=== PATIENT | female | born 2000 | race Caucasian/White ===

== ENCOUNTER 2018-02-24 14:01 | Emergency (ER) | payer OTHER ==
[~2018-02-24] VITALS: Ht 160 cm; Wt 57.0 kg
[2018-02-24 14:18] VITALS: BP 128/83
[2018-02-24] MEDS ORDERED: ACETAMINOPHEN 325MG TABLET PO ONE (14:30)
== END 2018-02-24 16:40 | disposition home or self-care (01) ==
LOC: ER 14:37
DX: S00.03XA Contusion of scalp, initial encounter (principal); W18.09XA Striking against other object with subsequent fall, initial encounter; Y93.9 Activity, unspecified; Y92.9 Unspecified place or not applicable
CPT/HCPCS: 99282

== ENCOUNTER 2018-07-23 21:39 | Emergency (ER) | payer OTHER ==
[~2018-07-23] VITALS: Ht 157.5 cm; Wt 59.0 kg
[2018-07-24 03:29] VITALS: BP 119/68
== END 2018-07-24 03:41 | disposition home or self-care (01) ==
LOC: ER 22:34
DX: R07.89 Other chest pain (principal)
CPT/HCPCS: 71045; 81025; 93005; 99284

== ENCOUNTER 2023-02-18 07:14 | Observation (INO) | payer MEDICAID ==
[~2023-02-18] VITALS: Ht 157.5 cm; Wt 80.7 kg
[2023-02-18] MEDS ORDERED: PREN-176 PO (21:19)
== END 2023-02-18 10:30 | disposition home or self-care (01) ==
LOC: 8 EST LDRP 07:14
PROVIDERS: ADMIT Obstetrics & Gynecology; ATTEND Obstetrics & Gynecology
DX: O62.9 Abnormality of forces of labor, unspecified (principal); O26.853 Spotting complicating pregnancy, third trimester; Z3A.39 39 weeks gestation of pregnancy
CPT/HCPCS: 59025; 76805; 99281; G0378

== ENCOUNTER 2023-02-18 20:42 | Inpatient (IN) | payer MEDICAID ==
[~2023-02-18] VITALS: Ht 157.5 cm; Wt 80.7 kg
[2023-02-18] MEDS ORDERED: PREN-176 PO (21:19)
[2023-02-18] MEDS ORDERED: METHYLERGONOVINE MALEATE 0.2 MG/ML IM PRN (22:00)
[2023-02-18] MEDS ORDERED: NALOXONE HCL 0.4 MG/ML 1ML VIAL IM PRN (22:00)
[2023-02-18] MEDS ORDERED: BUTORPHANOL TARTRATE 2 MG/ML VIAL IV PRN (22:00)
[2023-02-18] MEDS ORDERED: OXYTOCIN 30 UNITS/500ML NS PMX 500 ML IV SCH (22:00)
[2023-02-18] MEDS ORDERED: LIDOCAINE HCL 1% 20ML VIAL (Pyxis) INJ INFIL SCH (22:00)
[2023-02-18 22:20] LABS: BASOPHILS % 0.2 % (0.0-2.0); EOSINOPHILS % 0.1 % (0.0-5.0); HEMATOCRIT. 37.8 % (36.0-48.0); MEAN CORPUSCULAR HEMOGLOBIN 31.6 pg (28.0-32.0); MEAN CORPUSCULAR VOLUME 92.1 fL (81.0-99.0); MEAN PLATELET VOLUME 8.1 fl (7.4-10.4); NEUTROPHILS % 72.7 % (40.0-76.0); PLATELET 260 x1000/uL (130-400); RED CELL DISTRIBUTION WIDTH 14.1 % (11.6-14.6)
[2023-02-18] MEDS: LACTATED RINGERS 1,000 ML IV SCH ×2 (22:28→22:54)
[2023-02-18 22:30] LABS: INR 0.9; PARTIAL THROMBOPLASTIN TIME 25.7 sec (23.4-31.0); PROTHROMBIN TIME 9.3 sec (9.6-11.0)
[2023-02-18] MEDS ORDERED: PENICILLIN G POTASSIUM 5 MMU in DEXT 5% WATER 100 ML IV SCH (22:30)
[2023-02-18 22:33] LABS: CLARITY URINE TURBID (CLEAR); COLOR URINE YELLOW (YELLOW); KETONES URINE NEGATIVE (NEGATIVE); LEUKOCYTE ESTERASE URINE 2+ (NEGATIVE); NITRITE URINE NEGATIVE (NEGATIVE); OCCULT BLOOD URINE 3+ (NEGATIVE); PH URINE 7.5 (4.5-8.0); PROTEIN URINE NEGATIVE (NEGATIVE); SPECIFIC GRAVITY URINE 1.016 (1.005-1.030)
[2023-02-18 22:44] LABS: *AMPHETAMINES SCREEN URINE NEGATIVE (NEGATIVE); *BARBITURATES SCREEN URINE NEGATIVE (NEGATIVE); *BENZODIAZEPINES SCREEN URINE NEGATIVE (NEGATIVE); *COCAINE SCREEN URINE NEGATIVE (NEGATIVE); CANNABINOID URINE SCREEN NEGATIVE (NEGATIVE); METHADONE URINE SCREEN NEGATIVE (NEGATIVE); OPIATES URINE SCREEN NEGATIVE (NEGATIVE); PHENCYCLIDINE URINE SCREEN NEGATIVE (NEGATIVE)
[2023-02-18 22:56] LABS: HEPATITIS B SURFACE ANTIGEN NEGATIVE
[2023-02-18] MEDS ORDERED: ROPIVACAINE HCL/PF EPIDURAL 200 ML EPI ONE (23:54)
[2023-02-19] MEDS ORDERED: ROPIVACAINE HCL/PF EPIDURAL 200 ML EPI SCH
[2023-02-19] MEDS: LACTATED RINGERS 1,000 ML IV SCH ×3 (01:46→13:51)
[2023-02-19] MEDS ORDERED: PENICILLIN G POTASSIUM 2.5 MMU in DEXTROSE 5% WATER 50 ML IV SCH (03:00)
[2023-02-19] MEDS: PENICILLIN G POTASSIUM 2.5 MMU in DEXTROSE 5% WATER 50 ML IV SCH ×3 (04:01→12:12)
[2023-02-19] MEDS ORDERED: FENTANYL CITRATE/PF 50MCG/ML 2ML VIAL ONE ×2 (06:17→10:10)
[2023-02-19] MEDS ORDERED: OXYTOCIN 30 UNITS/500ML NS PMX 500 ML IV ONE (09:30)
[2023-02-19] MEDS ORDERED: INFLUENZA VACCINE 05/PF 0.5 ML SYRINGE IM ONE (11:00)
[2023-02-19] MEDS ORDERED: RHO(D) IMMUNE GLOBULIN 300 MCG/SYR IM PRN (19:30)
[2023-02-19] MEDS ORDERED: IBUPROFEN 400MG TABLET PO PRN (19:30)
[2023-02-19] MEDS ORDERED: LANOLIN OINT 7GM TUBE TOP PRN (19:30)
[2023-02-19] MEDS ORDERED: OXYTOCIN 30 UNITS/500ML NS PMX 500 ML IV SCH (19:30)
[2023-02-19] MEDS ORDERED: METHYLERGONOVINE MALEATE 0.2 MG/ML IM PRN (19:30)
[2023-02-19] MEDS: IBUPROFEN 800MG TABLET PO PRN (20:42)
[2023-02-20 07:27] LABS: BASOPHILS % 0.1 % (0.0-2.0); EOSINOPHILS % 0.2 % (0.0-5.0); HEMATOCRIT. 33.2 % (36.0-48.0); HEMOGLOBIN. 11.4 g/dL (12.0-16.0); LYMPHOCYTES % 20.4 % (20.0-50.0); MEAN CORPUSCULAR HEMOGLOBIN 31.8 pg (28.0-32.0); MEAN CORPUSCULAR VOLUME 92.8 fL (81.0-99.0); MEAN PLATELET VOLUME 8.4 fl (7.4-10.4); MONOCYTES % 5.9 % (2.0-8.0); NEUTROPHILS % 73.4 % (40.0-76.0); PLATELET 188 x1000/uL (130-400); RED BLOOD CELL COUNT 3.58 mill/uL (4.2-5.4); RED CELL DISTRIBUTION WIDTH 14.4 % (11.6-14.6)
[2023-02-20 08:30] VITALS: BP 115/64
[2023-02-20] MEDS: IBUPROFEN 800MG TABLET PO PRN ×2 (08:43→18:34)
[2023-02-20] MEDS: PRENATAL VIT/FE FUMARATE/FA TABLET PO SCH (08:43)
[2023-02-20 16:50] VITALS: BP 123/68
[2023-02-20 20:53] VITALS: BP 110/70
[2023-02-21 06:00] VITALS: BP 99/63
[2023-02-21] MEDS: PRENATAL VIT/FE FUMARATE/FA TABLET PO SCH (08:14)
[2023-02-21] MEDS: IBUPROFEN 800MG TABLET PO PRN (08:14)
[2023-02-21] MEDS ORDERED: IBUP-2030 MT (10:00)
== END 2023-02-21 16:30 | disposition home or self-care (01) | DRG 560 ==
LOC: 8 EST LDRP 20:42 → OBSVTOIN 20:42 → 8EST 02-19 21:00
PROVIDERS: ADMIT Obstetrics & Gynecology; ATTEND Obstetrics & Gynecology
PROC: 10E0XZZ Delivery of Products of Conception, External Approach (ICD-10-PCS; principal; 2023-02-19)
PROC: 3E0R3BZ Introduction of Anesthetic Agent into Spinal Canal, Percutaneous Approach (ICD-10-PCS; 2023-02-19)
PROC: 00HU33Z Insertion of Infusion Device into Spinal Canal, Percutaneous Approach (ICD-10-PCS; 2023-02-19)
DX: O90.81 Anemia of the puerperium (principal); Z37.0 Single live birth; D62 Acute posthemorrhagic anemia; Z3A.39 39 weeks gestation of pregnancy; Z20.822 Contact with and (suspected) exposure to COVID-19
CPT/HCPCS: 36415; 80305; 81003; 85025; 86592; 86644; 86703; 86762; 86850; 86900; 87340; 87426; 90686; 99281; J0595; J2540; J2795; J3010; J7060; J7120; A4315; J2590